=== PATIENT | male | born 2000 | race Caucasian/White ===

== ENCOUNTER 2020-02-09 14:38 | Emergency (ER) | payer MEDICAID ==
[~2020-02-09] VITALS: Ht 177.8 cm; Wt 72.5 kg
--- NOTE | 2020-02-09 16:12 | NUR ---
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 NO ACUTE DISTRESS NOTED.
[2020-02-09 18:05] VITALS: BP 140/74
--- NOTE | 2020-02-09 18:18 | NUR ---
KNEE IMMOBILIZER APPLIED BY MILK RUNNER, CMS INTACT. PAIN UNDER CONTROL. D/C INSTRUCTIONS, MEDS & F/U APPT RV'WD WITH PT, HE VERBALIZES UNDERSTANDING. RX GIVEN X1. PT AMBULATED OUT OF ED WITH CRUTCHES WITHOUT DIFFICULTY. STATES HIS FRIEND WILL PICK HIM UP.
== END 2020-02-09 18:18 | disposition home or self-care (01) ==
LOC: ED 18:00
DX: S83.412A Sprain of medial collateral ligament of left knee, initial encounter (principal); W01.0XXA Fall on same level from slipping, tripping and stumbling without subsequent striking against object, initial encounter; Y93.01 Activity, walking, marching and hiking; Y92.488 Other paved roadways as the place of occurrence of the external cause; Y99.8 Other external cause status
CPT/HCPCS: 29505; 99283